=== PATIENT | female | born 1930 | race Caucasian/White ===

== ENCOUNTER 2016-11-18 11:32 | Emergency (ER) | payer MEDICARE ==
[~2016-11-18] VITALS: Ht 157.5 cm; Wt 44.1 kg
[~2016-11-18 11:32] MED LIST: ACET325T51 PO; ALBU8.5H4 INHALATION; ARFO15VI2 IH; ASCO-294 PO; ASPI-973 PO; BUSP15TA3 PO; CALC-243 PO; IPRA3AMP IH; LORA5TAB8 PO; MERTAZAPINE PO; NITR0.4T6 SL; ONDA-54 PO; PRAV80TA2 PO; PRE10 PO; RIVA10TA PO; SOTA80TA PO
[2016-11-18 11:37] VITALS: BP 172/85; PULSE 59; RESP 16; O2SAT 96
--- NOTE | 2016-11-18 11:47 | ED.REPORT ---
HPI- Female Date of Service Nov 18, 2016 ED Provider: Gretel Nieves MD This patient is a former-smoking 86 year old female with a history of COPD, lung cancer, and hypertension who presents to the ED complaining of dysuria that started yesterday with no hematuria. She complains of pain near her pelvis. She states that she has noticed a foul smell like " fish" in her vaginal area with no discharge. She admits to diarrhea, abnormal BMs for the last 3-4 days, and chills but states that she is always cold. Nursing Notes Stated Complaint: POSS UTI Chief Complaint: Female Abdominal Pain Nursing Notes Reviewed: Yes Allergies: Coded Allergies: White Fish (Verified Allergy, Intermediate, 11/09/16) Pt. not allergic to iodine or fish oil. KEREN Inhibitors (Verified Adverse Reaction, Unknown, COUGH, 11/09/16) Uncoded Allergies: Most Seafood Tuna, hasn't tried shellfish/feels palms and fe (Adverse Reaction, Severe, Rash,Itching,, 09/20/12) Burning and itching on palms and soles of feet Scheduled ([mertazapine]) 15 MG PO DAILY Arformoterol Tartrate (Brovana) 15 Mcg/2 Ml Vial.neb 15 MCG IH BID Ascorbate Calcium (Vitamin C) 500 Mg Tablet 500 MG PO DAILY Aspirin (Aspirin) 81 Mg Tablet 81 MG PO DAILY Buspirone (Buspirone) 15 Mg Tablet 15 MG PO BID Calcium Carbonate/Vitamin D3 (Calcium 600 + Vit D Tablet) 1 Each Tablet 1 EACH PO DAILY Loratadine ODT (Claritin ODT) 5 Mg Tablet 10 MG PO DAILY Nitroglycerin SL (Nitroglycerin SL) 0.4 Mg Tab.subl 0.4 MG SL PRN Pravastatin (Pravastatin) 80 Mg Tablet 80 MG PO HS Prednisone (PredniSONE) 10 Mg Tablet 10 MG PO DAILY 11/10, 11/11 60mg daily 11/12, 11/13 40mg daily 11/14, 11/15 20mg daily 11/16, 11/17 10mg 11/18, 11/19 5mg daily Rivaroxaban (Xarelto) 10 Mg Tablet 10 MG PO DAILY Sotalol HCl (Sotalol) 80 Mg Tablet 40 MG PO BID Sotalol HCl (Sotalol) 80 Mg Tablet 80 MG PO BID Scheduled PRN Acetaminophen (Acetaminophen) 325 Mg Tablet 325 MG PO Q4H PRN PRN For Pain Albuterol HFA (Albuterol HFA) 8.5 Gm Hfa.aer.ad 2 PUFF INHALATION Q4H PRN PRN For Shortness of Breath Ipratropium/Albuterol Sulfate (Iprat-Albut 0.5-3(2.5) mg/3 mL Inhalant Soln) 3 Ml Ampul.neb 3 ML IH QID PRN PRN For Shortness of Breath Ondansetron (Ondansetron) 8 Mg Tablet 8 MG PO TID PRN PRN For Nausea/Vomiting General Time Seen by MD: 11:46 Chief Complaint Dysuria Hx Obtained From: Patient, Daughter Arrived By: Walk-in Sudden in Onset?: Yes Onset Occurred: Yesterday Symptom Duration: Since onset Location: : Suprapubic Quality: Burning Radiation: Does not radiate Severity: Current: Moderate Severity: Maximum: Moderate Recent Healthcare: No recent hospitalization, Recent doctor visit Similar Sx Previous: No Past Medical History Past Medical History Notes: Psychiatric Arnp: Leon COPD Past Medical History Paroxysmal atrial fibrillation, recurrent with rapid ventricular response Anticoagulation with Xarelto 15 mg daily, Coronary artery disease s/p PTCA of the diagonal branch and right coronary artery in 1992 Chronic hypoxic respiratory failure due to chronic obstructive pulmonary disease on continuous home oxygen (3 L/min). Pulmonary hypertension. Hyperlipidemia. Anemia, acute on chronic. Depression with prolonged grieving. Lung cancer dx in 1999, remote s/p R lung partial pneumectomy, in remission. Bilateral carotid stenosis, 50-69% R ICA and <50% L ICA on doppler in 11/2014 Right-sided stage I invasive ductal breast cancer, ER pos,[place] neg, HER2 neg (dx 2012, followed by Dr. Dow) s/p partial mastectomy, LN dissection and radiation therapy, refused adjuvant chemo, in remission with normal screening mammogram 02/2015. Reports: Cancer (Lung), Hypertension Past Surgical History Partial mastectomy R partial Pneumectomy Reports: Angioplasty Family History Noncontributory Smoking History Former Smoker Social History Alcohol Use: Denies alcohol use Drug Use: Denies drug use Other Social History: Good social support, Local resident Ambulatory Status Independent Review of Systems Basic Review of Systems Eyes: Vision NL, No discharge Cardiovascular: No chest pain Hematologic: No bleeding Psychiatric: Normal thought content Constitutional: Reports: Chills (Pt. states she is always cold) GI: Reports: Diarrhea Female: Reports: Dysuria, Pelvic pain, Denies: Hematuria, Vaginal discharge Complete sys rev & neg: except as marked. Physical Exam Initial Vital Signs Vital Signs (First) Date Time Temp Pulse Resp B/P Pulse Ox O2 Delivery O2 Flow Rate FiO2 11/18/16 11:37 37.3 59 16 172/85 96 Nasal Cannula Initial VS: Reviewed General/Constitutional: Well-developed Head / Eyes: Atraumatic, Normocephalic ENT: Mucous membranes moist, Conjunctiva normal, No scleral icterus Neck: Supple, Non-tender, Full range of motion Cardiovascular: Regular rate & rhythm, Heart sounds normal, Intact distal pulses Extremities: Vascular intact, Neuro intact Skin: Warm, Dry, No cyanosis Neurologic: Alert, Oriented, Nonfocal Psychiatric: Mood/affect normal, Behavior normal, Normal thought content Female Genitourinary: No discharge no groin rashes Respiratory / Chest: Atraumatic, No respiratory distress Rales / Rhonchi: Positive: Rhonchi diffuse (scattered) Abdomen: Atraumatic, Soft, No guarding, No rebound Mild suprapubic tenderness Interpretation & Diagnostics Lab Results Interpretation Test 11/18/16 12:26 Urine Color Straw (YELLOW) Urine Appearance Clear (CLEAR,HAZY) Urine pH 8.0 (5.0-8.0) Urine Specific [place] 1.012 (1.003-1.035) Urine Protein Negativemg/dL (NEG,TRACE) Urine Glucose (UA) Negativemg/dL (NEGATIVE) Urine Ketones Negativemg/dL (NEGATIVE) Urine Occult Blood Trace (NEGATIVE) Urine Nitrite Negative (NEGATIVE) Urine Bilirubin Negative (NEGATIVE) Urine Urobilinogen Normalmg/dL (NORMAL) Urine Leukocyte Esterase Negative (NEGATIVE) Urine RBC 0-2/hpf (0-2) Urine WBC 0-5/hpf (0-5) Urine Epithelial Cells Occasional/hpf (NONE-MOD) Urine Crystals None seen (NONE SEEN) Urine Bacteria None/hpf (NONE-FEW) Urine Hyaline Casts None/lpf (NONE) Urine Granular Casts None seen (NONE SEEN) Urine Waxy Casts None seen (NONE SEEN) Urine Red Blood Cell Casts None seen (NONE SEEN) Urine White Blood Cell Casts None seen (NONE SEEN) Urine Mucus None seen (None Seen) Urine Trichomonas None seen (NONE SEEN) Urine Yeast None (NONE SEEN) Urinalysis Comment None Urine Culture Reflexed Not indicated General Lab Results Interp 1: Labs reviewed Re-Eval/Medical Decision Med Decision/Clinical Course She was concerned for a urinary tract infection however urine is clean. On pelvic exam the patient does have some white adherent discharge. Patient is on xeralto and was given 1 dose of Diflucan which given his a 1 time dose was felt to be safe. Re-Evaluation/Progress #1: Time of Eval: 13:41 Patient Status: Condition unchanged Re-Evaluation/Progress Note: Pt. was informed that she will need a pelvic exam. Ptr. understands and agrees with plan. All questions have been addressed at this time. Re-Evaluation/Progress #2: Time of Eval: 14:15 Patient Status: Condition unchanged Re-Evaluation/Progress Note: Pelvic exam was performed. Pelvic pessary was removed and replaced. White adherent discharge was seen. All questions have been addressed at this time. Counseled Regarding: Diagnosis, Lab results Discharge & Departure Impression: Primary Impression: Vaginitis Chronicity: acute Qualified Code: N76.0 - Acute vaginitis Additional Impression: Vaginal yeast infection Disposition: Home Discharge Condition All VS Reviewed: Yes Condition: Stable Additional Instructions: You can take the Diflucan as directed to treat the yeast infection. Seek care for any new or concerning symptoms. Referrals: Princess Mckeon MD (PCP) Hollisibdeisy Attestation Portions of this note were transcribed by Dinah Lock and Rosenda Tovar. I, Dr. Nieves personally performed the history, physical exam and medical decision- making; I reviewed and confirmed the accuracy of the information in the transcribed note. Signed by: Dinah Lock and Ross Shetty, 11/18/2016 and [[id number]]. copies to: Princess Mckeon MD, Jena M MD Nov 18, 2016 11:47 Haylee Tovar [Rosenda] Nov 18, 2016 12:08 Dinah Lock Nov 18, 2016 13:03
[2016-11-18 13:16] LABS: APPEARANCE,URINE CLEAR (CLEAR,HAZY); COLOR,URINE STRAW (YELLOW); OCCULT BLOOD,URINE TRACE (NEGATIVE); UROBILINOGEN,URINE NORMAL (NORMAL)
[2016-11-18 15:01] VITALS: BP 142/62; PULSE 53; RESP 16; O2SAT 97
== END 2016-11-18 15:30 | disposition home or self-care (01) ==
LOC: SED 11:32
DX: N76.0 Acute vaginitis (principal); B37.3 Candidiasis of vulva and vagina; I27.2 Other secondary pulmonary hypertension; I25.10 Atherosclerotic heart disease of native coronary artery without angina pectoris; C34.90 Malignant neoplasm of unspecified part of unspecified bronchus or lung; Z87.891 Personal history of nicotine dependence; Z79.82 Long term (current) use of aspirin

== ENCOUNTER 2017-02-06 11:21 | Emergency (ER) | payer MEDICARE ==
[~2017-02-06] VITALS: Ht 157.5 cm; Wt 42.7 kg
[2017-02-06 11:33] VITALS: BP 133/68; RESP 16; O2SAT 100
[2017-02-06] MEDS ORDERED: ALBU8.5H2 INHALATION (11:36)
--- NOTE | 2017-02-06 11:36 | ED.REPORT ---
HPI-General Illness Date of Service Feb 06, 2017 ED Provider: Anand Nolen MD The patient is an 86 year old female with history of paroxysmal atrial fibrillation on Xarelto, coronary artery disease, chronic hypoxic respiratory failure due to COPD on continuous home oxygen (3L), hypertension, hyperlipidemia , lung cancer in remission s/p partial pneumectomy, and breast cancer in remission s/p mastectomy, who presents to the emergency department complaining of nose bleeding that began yesterday. Her daughter reports that the patient's nose has been dripping blood and when she blows her nose there is bright red blood and clots on the tissue. She has a chronic runny nose. She denies generalized weakness, dizziness, lightheadedness, or chest pain. Nursing Notes Stated Complaint: NOSE BLEED Chief Complaint: ENT & Mouth Nursing Notes Reviewed: Yes Allergies: Coded Allergies: White Fish (Verified Allergy, Intermediate, 02/06/17) Pt. not allergic to iodine or fish oil. KEREN Inhibitors (Verified Adverse Reaction, Unknown, COUGH, 02/06/17) Uncoded Allergies: Most Seafood Tuna, hasn't tried shellfish/feels palms and fe (Adverse Reaction, Severe, Rash,Itching,, 09/20/12) Burning and itching on palms and soles of feet Scheduled Albuterol HFA (Proair HFA) 8.5 Gm Hfa.aer.ad 2 PUFFS INHALATION Q4H Arformoterol Tartrate (Brovana) 15 Mcg/2 Ml Vial.neb 15 MCG IH BID Aspirin (Aspirin) 81 Mg Tablet 81 MG PO DAILY Loratadine ODT (Claritin ODT) 5 Mg Tablet 10 MG PO DAILY Mirtazapine (Mirtazapine) 15 Mg Tablet 15 MG PO HS Nitroglycerin SL (Nitroglycerin SL) 0.4 Mg Tab.subl 0.4 MG SL PRN Pravastatin (Pravastatin) 80 Mg Tablet 80 MG PO HS Rivaroxaban (Xarelto) 15 Mg Tablet 15 MG PO DAILY Sotalol HCl (Sotalol) 80 Mg Tablet 80 MG PO QAM Sotalol HCl (Sotalol) 80 Mg Tablet 40 MG PO QPM Telmisartan (Telmisartan) 40 Mg Tablet 40 MG PO DAILY Scheduled PRN Acetaminophen (Acetaminophen) 500 Mg Tablet 500 MG PO Q6H PRN PRN For Headache Ipratropium/Albuterol Sulfate (Iprat-Albut 0.5-3(2.5) mg/3 mL Inhalant Soln) 3 Ml Ampul.neb 3 ML IH QID PRN PRN For Shortness of Breath Mineral Oil/Pet Hy-Phl (Aquaphor) 1 Applic/Gm Oint 1 APPLIC TOP PRN dryness to use on q-tip in nose Ondansetron ODT (Zofran ODT) 4 Mg Tablet 4 MG PO QID PRN PRN For Nausea General Time Seen by MD: 11:27 Chief Complaint Other (nose bleeding) Hx Obtained From: Patient, Daughter Arrived By: Wheelchair Sudden in Onset?: Yes Onset Occurred: Yesterday Symptom Duration: Intermittent Severity: Current: No pain currently Severity: Maximum: No pain Recent Healthcare: No recent hospitalization Similar Sx Previous: No Past Medical History Past Medical History Notes: 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 Pulmonary hypertension. Hyperlipidemia. Anemia, acute on chronic. Depression with prolonged grieving. Lung cancer dx in 1999, remote s/p R lung partial pneumectomy, in remission. Bilateral carotid stenosis, 50-69% R ICA and <50% L ICA on doppler in 11/2014 Right-sided stage I invasive ductal breast cancer, ER pos,[place] neg, HER2 neg (dx 2012, followed by Dr. Dow) s/p partial mastectomy, LN dissection and radiation therapy, refused adjuvant chemo, in remission with normal screening mammogram 02/2015. Reports: Cancer Past Surgical History Partial mastectomy R partial Pneumectomy Reports: Angioplasty Family History Noncontributory Smoking History Former Smoker Social History Alcohol Use: Denies alcohol use Drug Use: Denies drug use Other Social History: Good social support, Local resident Ambulatory Status Wheelchair Review of Systems Full Review of Systems Ears / Nose / Throat: Reports: Nose bleeding Respiratory: Reports: Shortness of breath (chronic) Cardiovascular: Denies: Chest pain Allergy / Immune: Reports: Rhinorrhea (chronic) Neurologic: Denies: Focal weakness, Lightheaded, Weakness Complete sys rev & neg: except as marked. Physical Exam Vital Signs Vital Signs Date Time Temp Pulse Resp B/P Pulse Ox O2 Delivery O2 Flow Rate FiO2 02/06/17 11:33 36.3 60 16 133/68 100 Room Air Initial VS: Reviewed Head / Eyes: Atraumatic, Normocephalic, PERRL Neck: Supple, Non-tender, Full range of motion Respiratory: Breath sounds normal, Clear to auscultation, No respiratory distress Cardiovascular: Regular rate & rhythm, Heart sounds normal, Intact distal pulses Abdomen / GI: Soft, Non-tender, No guarding, No rebound, No distention Lymphatic: No lymphadenopathy Extremities: Vascular intact, Neuro intact, No swelling, No tenderness Skin: Warm, Dry, No cyanosis Neurologic: Alert, Oriented, Nonfocal Psychiatric: Mood/affect normal, Behavior normal, Normal thought content General/Constitutional: Awake, Alert, No acute distress, Cooperative ENT: Airway patent, Mucous membranes moist There is a blood clot on the nasal mucous on the left side. On the right side there is a small amount of blood on the medial nasal mucous. There is no active bleeding on either side. Re-Eval/Medical Decision Med Decision/Clinical Course 86 yo f chronic allergic rhinitis with epistaxis. Resolved prior to arrival. No signs/sxs anemia - declined labs. Observed with no recurrence. Given afrin and discharged with return precautions. Source of Hx: Old records, Family Time of Eval: 12:38 Re-Evaluation/Progress Note: Rechecked the patient. There is still no active bleeding. Discussed plan for discharge. All questions were addressed. Counseled Regarding: Diagnosis, Need for follow-up, When/why to return to ED Discharge & Departure Primary Impression: Epistaxis Additional Impression: Anticoagulated Disposition: Home Discharge Condition All VS Reviewed: Yes Condition: Stable Patient Instructions: Epistaxis (ED) Additional Instructions: Thank you for entrusting us with your care today. Your bleeding was controlled during your time in the emergency department today. If it starts bleeding again use the Afrin spray and apply pressure. Please come back if you are unable to control the bleeding. Followup with your regular doctor in the next day or two for re-evaluation. Seek care sooner if you are unable to control the bleeding or if you develop dizziness, lightheadedness, weakness, chest pain, or any other new or concerning symptoms. Referrals: Princess Mckeon MD (PCP) Scribe Attestation Portions of this note were transcribed by Meka Valdes. I, Dr. Nolen personally performed the history, physical exam and medical decision-making; I reviewed and confirmed the accuracy of the information in the transcribed note. Signed by: Ross Boogie, 02/06/2017 at 1300. copies to: Princess Mckeon MD, Ben M MD Feb 06, 2017 11:36 Meka Valdes Feb 06, 2017 11:50
[2017-02-06] MEDS ORDERED: TELM40TA4 PO (11:45)
[2017-02-06] MEDS ORDERED: ACET-171 PO (11:45)
[2017-02-06] MEDS ORDERED: RIVA15TA PO (11:45)
[2017-02-06] MEDS ORDERED: SOTA80TA PO ×2 (11:45)
[2017-02-06] MEDS ORDERED: ONDA4TAB9 PO (11:45)
[2017-02-06] MEDS ORDERED: MINE105O TOP (11:45)
[2017-02-06] MEDS ORDERED: MIRT15TA6 PO (11:45)
== END 2017-02-06 13:04 | disposition home or self-care (01) ==
LOC: SED 11:21
DX: R04.0 Epistaxis (principal); R09.89 Other specified symptoms and signs involving the circulatory and respiratory systems; I25.10 Atherosclerotic heart disease of native coronary artery without angina pectoris; I11.9 Hypertensive heart disease without heart failure; I48.91 Unspecified atrial fibrillation; J44.9 Chronic obstructive pulmonary disease, unspecified; E78.5 Hyperlipidemia, unspecified; Z79.01 Long term (current) use of anticoagulants; Z79.82 Long term (current) use of aspirin; Z99.81 Dependence on supplemental oxygen; Z88.8 Allergy status to other drugs, medicaments and biological substances; Z91.013 Allergy to seafood

== ENCOUNTER 2017-06-07 21:36 | Emergency (ER) | payer MEDICARE ==
[~2017-06-07] VITALS: Ht 160 cm; Wt 54.5 kg
[~2017-06-07 21:36] MED LIST changes: +ACET-171 PO; -ACET325T51 PO; +ALBU8.5H2 INHALATION; -ALBU8.5H4 INHALATION; -ASCO-294 PO; -BUSP15TA3 PO; -CALC-243 PO; -MERTAZAPINE PO; +MINE105O TOP; +MIRT15TA6 PO; -ONDA-54 PO; +ONDA4TAB9 PO; -PRE10 PO; -RIVA10TA PO; +RIVA15TA PO; +TELM40TA4 PO
--- NOTE | 2017-06-07 21:43 | ED.REPORT ---
HPI-General Illness Date of Service Jun 07, 2017 ED Provider: Dr. Gianluca Pinto MD An 86 year old female with a history of paroxysmal atrial fibrillation on Xarelto, pulmonary hypertension, lung cancer in remission s/p partial pneumectomy, right stage I breast cancer in remission s/p mastectomy, COPD on home O2 and CAD presents to the ED via EMS from an assisted living facility with N/V/D that began this morning. EMS report that the patient was found confused with shaking chills at the scene and she was given 50 mg of fentanyl en route. Patient is also currently complaining of abdominal pain and diaphoresis. She reportedly had teeth pulled yesterday. Nursing Notes Stated Complaint: NAUSEA,VOMITING,ABDOMINAL PAIN Nursing Notes Reviewed: Yes Allergies: Coded Allergies: White Fish (Verified Allergy, Intermediate, 06/07/17) Pt. not allergic to iodine or fish oil. KEREN Inhibitors (Verified Adverse Reaction, Unknown, COUGH, 06/07/17) Uncoded Allergies: Most Seafood Tuna, hasn't tried shellfish/feels palms and fe (Adverse Reaction, Severe, Rash,Itching,, 09/20/12) Burning and itching on palms and soles of feet Scheduled Albuterol HFA (Proair HFA) 8.5 Gm Hfa.aer.ad 2 PUFFS INHALATION Q4H Arformoterol Tartrate (Brovana) 15 Mcg/2 Ml Vial.neb 15 MCG IH BID Aspirin (Aspirin) 81 Mg Tablet 81 MG PO DAILY Loratadine ODT (Claritin ODT) 5 Mg Tablet 10 MG PO DAILY Mirtazapine (Mirtazapine) 15 Mg Tablet 15 MG PO HS Nitroglycerin SL (Nitroglycerin SL) 0.4 Mg Tab.subl 0.4 MG SL PRN Pravastatin (Pravastatin) 80 Mg Tablet 80 MG PO HS Rivaroxaban (Xarelto) 15 Mg Tablet 15 MG PO DAILY Sotalol HCl (Sotalol) 80 Mg Tablet 80 MG PO QAM Sotalol HCl (Sotalol) 80 Mg Tablet 40 MG PO QPM Telmisartan (Telmisartan) 40 Mg Tablet 40 MG PO DAILY Scheduled PRN Acetaminophen (Acetaminophen) 500 Mg Tablet 500 MG PO Q6H PRN PRN For Headache Ipratropium/Albuterol Sulfate (Iprat-Albut 0.5-3(2.5) mg/3 mL Inhalant Soln) 3 Ml Ampul.neb 3 ML IH QID PRN PRN For Shortness of Breath Mineral Oil/Pet Hy-Phl (Aquaphor) 1 Applic/Gm Oint 1 APPLIC TOP PRN dryness to use on q-tip in nose Ondansetron ODT (Zofran ODT) 4 Mg Tablet 4 MG PO QID PRN PRN For Nausea Ondansetron ODT (Ondansetron ODT) 8 Mg Tab.rapdis 8 MG PO QID PRN PRN For Nausea General Time Seen by MD: 21:42 Chief Complaint Other (Nausea) Hx Obtained From: Patient, EMS Arrived By: Ambulance Sudden in Onset?: No Onset Occurred: 9 - 12 hours ago Symptom Duration: Since onset Location: : Abdomen Quality: Painful Radiation: : Does not radiate Severity: Current: Mild Severity: Maximum: Moderate Associated with: Reports: Abdominal pain, Nausea Pertinent Negative: Pt denies other symptoms Recent Healthcare: No recent hospitalization, Recent doctor visit Past Medical History Past Medical History 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 Paroxysmal atrial fibrillation, recurrent with rapid ventricular response Anticoagulation with Xarelto 15 mg daily, 2. Coronary artery disease s/p PTCA of the diagonal branch and right coronary artery in 1992 3. Chronic hypoxic respiratory failure due to chronic obstructive pulmonary disease on continuous home oxygen (3 L/min). 4. Pulmonary hypertension. 5. Hyperlipidemia. 6. Anemia, acute on chronic. 7. Depression with prolonged grieving. 8. Lung cancer dx in 1999, remote s/p R lung partial pneumectomy, in remission. 9. Bilateral carotid stenosis, 50-69% R ICA and <50% L ICA on doppler in 11/2014 10. Right-sided stage I invasive ductal breast cancer, ER pos,NM neg, HER2 neg (dx 2012, followed by Dr. Dow) s/p partial mastectomy, LN dissection and radiation therapy, refused adjuvant chemo, in remission with normal screening mammogram 02/2015. Past Surgical History Partial mastectomy R partial Pneumectomy Angioplasty Family History Noncontributory Smoking History Former Smoker Social History Alcohol Use: Denies alcohol use Drug Use: Denies drug use Other Social History: Good social support, Local resident Ambulatory Status Wheelchair Review of Systems Full Review of Systems Constitutional: Reports: Chills (Shaking), Fever GI: Reports: Abdominal pain, Diarrhea, Nausea, Vomiting Skin: Reports Diaphoresis Psychiatric: Reports: Confusion Complete sys rev & neg: except as marked. Physical Exam Vital Signs Vital Signs Date Time Temp Pulse Resp B/P Pulse Ox O2 Delivery O2 Flow Rate FiO2 06/08/17 02:06 36.5 55 14 102/41 98 Nasal Cannula 4 06/08/17 00:55 60 13 104/35 99 Nasal Cannula 4 06/07/17 22:30 57 11 155/53 95 Nasal Cannula 3 06/07/17 21:54 36.5 53 21 140/60 95 Nasal Cannula 3 Initial VS: Reviewed Neck: Supple, Non-tender, Full range of motion Extremities: Vascular intact, Neuro intact, No swelling, No tenderness Psychiatric: Mood/affect normal, Behavior normal, Normal thought content General/Constitutional: Awake, Alert Distress / Hydration: Positive: Distress moderate Appearance / Presentation: Positive: Uncomfortable GENERAL: Nauseous Head / Eyes: Atraumatic, Normocephalic, PERRL ENT: Atraumatic, Airway patent, Mucous membranes moist, Pharynx NL, Tympanic membs NL, Ext aud canal NL Respiratory / Chest: Atraumatic, Breath sounds NL, Breath sounds = bilat, No respiratory distress Cardiovascular: Heart rate NL, Heart sounds NL, Peripheral circulation NL, Pulses = bilaterally Heart Rate / Rhythm: Positive: Irreg irregular rhythm Abdomen: Atraumatic, Soft Tenderness/Guarding/Rebound: Positive: Tender diffuse Skin: Atraumatic, Color NL, Dry Color / Condition: Positive: Diaphoresis present SKIN: Cool Interpretation & Diagnostics Lab Results Interpretation Result Diagram: 06/07/17 2210 06/07/17 2002 Test 06/07/17 20:02 06/07/17 22:10 06/07/17 22:34 06/07/17 23:45 Prothrombin Time 9.6sec (8.1-12.5) Prothromb Time International Ratio 0.90ratio Sodium Level 142mEq/L (134-144) Potassium Level 4.5mEq/L (3.5-5.2) Chloride Level 98mEq/L (97-108) Carbon Dioxide Level 36mmol/L (18-29) Blood Urea Nitrogen 29mg/dL (8-27) Creatinine 0.80mg/dL (0.57-1.00) Estimat Glomerular Filtration Rate 98mL/min (>59) Glucose Level 123mg/dL (60-99) Calcium Level 9.9mg/dL (8.5-10.1) Magnesium Level 1.9mg/dL (1.6-2.6) Total Bilirubin 0.3mg/dL (0.0-1.2) Aspartate Amino Transf (AST/SGOT) 20U/L (0-50) Alanine Aminotransferase (ALT/SGPT) 8U/L (0-32) Alkaline Phosphatase 52U/L (25-165) Troponin T 0.010ug/L (0.0-0.011) Total Protein 6.2g/dL (6.4-8.4) Albumin 3.7g/dL (3.4-5.0) Lipase 55U/L (13-60) White Blood Count 10.4th/mm3 (3.8-10.1) Red Blood Count 3.34mil/mm3 (3.90-5.20) Hemoglobin 9.8g/dL (12.0-15.6) Hematocrit 33.8% (35.0-46.0) Mean Corpuscular Volume 101.2fL (81-100) Mean Corpuscular Hemoglobin 29.3pg (27.0-35.0) Mean Corpuscular Hemoglobin Concent 29.0% (32.0-37.0) Red Cell Distribution Width 13.2% (12.3-15.4) Platelet Count 172bil/L (150-400) Neutrophils (%) (Auto) 67.7% (40-74) Lymphocytes (%) (Auto) 19.8% (14-46) Monocytes (%) (Auto) 11.4% (4-12) Eosinophils (%) (Auto) 0.7% (0-5) Basophils (%) (Auto) 0.2% (0-3) Lactic Acid Level 0.9mmol/L (0.4-2.0) Urine Color Yellow (YELLOW) Urine Appearance Clear (CLEAR,HAZY) Urine pH 5.5 (5.0-8.0) Urine Specific [place] 1.030 (1.003-1.035) Urine Protein Negativemg/dL (NEG,TRACE) Urine Glucose (UA) Negativemg/dL (NEGATIVE) Urine Ketones Negativemg/dL (NEGATIVE) Urine Occult Blood Negative (NEGATIVE) Urine Nitrite Negative (NEGATIVE) Urine Bilirubin Negative (NEGATIVE) Urine Urobilinogen Normalmg/dL (NORMAL) Urine Leukocyte Esterase Negative (NEGATIVE) Urine RBC 3-10/hpf (0-2) Urine WBC 0-5/hpf (0-5) Urine Epithelial Cells Moderate/hpf (NONE-MOD) Urine Crystals None seen (NONE SEEN) Urine Bacteria Few/hpf (NONE-FEW) Urine Hyaline Casts Occasional/lpf (NONE) Urine Granular Casts None seen (NONE SEEN) Urine Waxy Casts None seen (NONE SEEN) Urine Red Blood Cell Casts None seen (NONE SEEN) Urine White Blood Cell Casts None seen (NONE SEEN) Urine Mucus Present (None Seen) Urine Trichomonas None seen (NONE SEEN) Urine Yeast None (NONE SEEN) Urinalysis Comment None Urine Culture Reflexed Not indicated ECG Interpretation ECG Interpretation: Sinus Rhythm Rate 53 Time: 20:08 Interpreted by: ED physician Normal ECG Interpretation: No change from prior ECGs (11/09/16) CT Abd / Pelvis Interpretation IMPRESSION: Colonic diverticulosis without evidence of diverticulitis Pancreatic cystic leisons Study type: Abdominal CT IV contrast Interpretation / Wet Read by: Interpret - Radiologist ([facility] [[email or web address]]) Re-Eval/Medical Decision Med Decision/Clinical Course 86-year-old with stage IV cancer presents with an episode of vomiting and nausea, and some apparent confusion noted by retirement staff. She is not confused here but complains of her nausea and vomiting primarily. This is resolved with fluids and Zofran. Family has arrived they are comfortable with her current mental status. She desires to go home. Her evaluation arises reassuring. Discharged in stable condition for follow-up with PCP. Zofran when necessary nausea. Time of Eval: 01:13 Patient Status: Condition improved, Moderate relief Re-Evaluation/Progress Note: Patient is re-evaluated. Her symptoms have improved upon recheck. She is informed of her results and diagnosis. The patient understands and agrees with the intended treatment plan. Counseled Regarding: Diagnosis, Lab results, Need for follow-up, When/why to return to ED Discharge & Departure Primary Impression: Gastroenteritis Additional Impression: Breast cancer Disposition: Home Discharge Condition All VS Reviewed: Yes Condition: Stable Patient Instructions: Acute Diarrhea (ED), Acute Nausea and Vomiting (ED), Gastroenteritis (ED) Additional Instructions: Zofran up to four times daily if needed for nausea. Keep this available it is useful for acute gastroenteritis and food poisoning etc. Follow up with your doctor in the office. Clear fluid diet and advance slowly as tolerated. Return for any immediate issues over the weekend. Referrals: Hu Dow DO (PCP) Scribe Attestation Portions of this note were transcribed by Luis Vanessa. I, Dr. Pinto personally performed the history, physical exam and medical decision-making; I reviewed and confirmed the accuracy of the information in the transcribed note. copies to: Hu Dow Christopher W MD Jun 07, 2017 21:43 LUIS VANESSA Jun 07, 2017 21:43
[2017-06-07] MEDS ORDERED: 0.9% Sodium Chloride 1,000 ML IV ONE (21:47)
[2017-06-07] MEDS ORDERED: Ondansetron 2 mg/mL 2 mL Inj IVPUSH ONE (21:50)
[2017-06-07] MEDS ORDERED: fentaNYL-PF 50 mCg/mL 2 mL Inj IVPUSH PRN (21:50)
[2017-06-07 21:54] VITALS: BP 140/60; PULSE 53; RESP 21; O2SAT 95
[2017-06-07 22:25] LABS: BASOPHILS % (AUTO) 0.2 % (0-3); EOSINOPHILS % (AUTO) 0.7 % (0-5); MONOCYTES % (AUTO) 11.4 % (4-12); Mean Corpuscular Hemoglobin 29.3 pg (27.0-35.0); Mean Corpuscular Volume 101.2 fL (81-100); NEUTROPHILS % (AUTO) 67.7 % (40-74); Platelet Count 172 bil/L (150-400)
[2017-06-07 22:30] VITALS: BP 155/53; PULSE 57; RESP 11; O2SAT 95
[2017-06-07 22:36] LABS: INR 0.9 ratio
[2017-06-07 22:42] LABS: Magnesium 1.9 mg/dL (1.6-2.6)
[2017-06-07 23:57] LABS: APPEARANCE,URINE CLEAR (CLEAR,HAZY); COLOR,URINE YELLOW (YELLOW); OCCULT BLOOD,URINE NEGATIVE (NEGATIVE); PH,URINE 5.5 (5.0-8.0); UROBILINOGEN,URINE NORMAL (NORMAL)
[2017-06-08 00:55] VITALS: BP 104/35; PULSE 60; RESP 13; O2SAT 99
[2017-06-08] MEDS ORDERED: ONDA8TAB10 PO (01:20)
[2017-06-08] MEDS ORDERED: _Ondansetron ODT 4 mg Tablet PO PRN (01:20)
[2017-06-08 02:06] VITALS: BP 102/41; PULSE 55; RESP 14; O2SAT 98
--- NOTE | 2017-06-08 07:48 | DRSVH ---
PROCEDURE: CT ABDOMEN AND PELVIS WITH CONTRAST ([id number]) INDICATIONS: abdo pain, vomiting, stage IV breast CA TECHNIQUE: After the administration of intravenous contrast, 5 mm thick sections acquired from the diaphragm to the symphysis. 5 mm coronal and sagittal reformats were acquired. For radiation dose reduction, the following was used: automated exposure control, adjustment of mA and/or kV according to patient joselin olivas. COMPARISON: [facility], CT, CT ABD PELVIS W CON, 03/05/2016, 12:23. FINDINGS: Image quality: Excellent. ABDOMEN: Lung bases: Diffuse scarring/atelectasis in the visualized lung bases. There is a moderate hiatal her janet Solid organs: Hepatic steatosis otherwise liver and spleen are normal in size and enhancement. Gallb ladder unremarkable. Biliary system is non dilated. Cystic foci within the pancreatic head and unci toshia process with unchanged appearance since 03/05/16. Wide differential includes pancreatic cysts or pseudocysts, IPMT or other cystic neoplasm. No adrenal nodules. Diffuse cortical atrophy and thinning. No hydronephrosis. Peritoneum and bowel: No free fluid or free air. No evidence of bowel obstruction. Scattered colonic diverticula without evidence of acute diverticulitis. Appendix appears normal. The rectum is grossly unremarkable Nodes and vessels: No retroperitoneal or mesenteric adenopathy by size criteria. Aorta and inferior vena cava are normal in size. There are scattered atheromatous calcifications. Left common iliac ar zay aneurysm measuring 1.9 cm diameter. This is unchanged since 03/05/16 Miscellaneous: No ventral hernias. PELVIS: Genitourinary: Bladder wall thickness is normal. Pessary is noted. Miscellaneous: No inguinal hernias or adenopathy. Bones: No suspicious bony lesions. No vertebral body compression fractures. IMPRESSION: Colonic diverticulosis. No evidence of acute diverticulitis. Moderate hiatal hernia. Unchanged cystic appearing lesion within the pancreatic head and uncinate process with differential o utlined above. No change since 03/05/16. 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 Dictated by: Jericho Tenorio M.D. on 06/08/2017 at 7:36 Approved by: Jericho Tenorio M.D. on 06/08/2017 at 7:46
== END 2017-06-08 02:07 | disposition home or self-care (01) ==
LOC: SED 21:36
DX: K52.9 Noninfective gastroenteritis and colitis, unspecified (principal); I25.10 Atherosclerotic heart disease of native coronary artery without angina pectoris; I10 Essential (primary) hypertension; E78.5 Hyperlipidemia, unspecified; Z79.82 Long term (current) use of aspirin; Z85.3 Personal history of malignant neoplasm of breast; Z85.118 Personal history of other malignant neoplasm of bronchus and lung; Z87.891 Personal history of nicotine dependence
CPT/HCPCS: 36415; 51701; 74177; 80053; 81000; 83605; 83690; 83735; 84484; 85025; 85610; 93005; 96361; 96374; 99285; J2405; J7030; Q9967